=== PATIENT | male | born 1945 | race Caucasian/White ===

== ENCOUNTER 2021-03-06 10:21 | Inpatient (IN) | payer MEDICARE, OTHER ==
[~2021-03-06] VITALS: Ht 172.7 cm; Wt 79.1 kg
[2021-03-06 10:57] LABS: BASOPHIL 0.4 % (0-2); EOSINOPHIL 0.2 % (0-7); HCT 42.4 % (42.0-52.0); LYMPHOCYTE 13.7 % (15-48); MCH 29.8 pg (25.0-31.0); MCV 90.2 fL (78.0-100.0); MONOCYTE 11.7 % (0-12); MPV 10.6 fL (6.0-9.5); NEUTROPHIL 73.2 % (41-80); NRBC 0; PLT 336 K/uL (150-400); RDW 13.7 % (11.5-14.0); WBC 8.2 K/uL (4.0-10.5)
[2021-03-06 11:21] LABS: PRO-BNP 588 pg/mL (<450)
[2021-03-06 11:25] LABS: ALBUMIN 2.4 g/dL (3.4-5.0); BILIRUBIN - TOTAL 0.7 mg/dL (0.2-1.0); BUN/CREAT RATIO (CALC) 41.5 RATIO; CREATININE 1.47 mg/dL (0.67-1.17); GLOBULIN (CALCULATION) 5.1 g/dL; LACTIC ACID 1.7 mmol/L (0.4-1.9); POTASSIUM 3.8 mmol/L (3.5-5.1); TOTAL PROTEIN 7.5 g/dL (6.4-8.2)
[2021-03-06 11:46] LABS: CORONAVIRUS 2019 SARS-COV-2 NEGATIVE (NEGATIVE); INFLUENZA A NAA NEGATIVE (NEGATIVE)
[2021-03-06] MEDS ORDERED: SODIUM BICARBO650 M1 PO (14:51)
[2021-03-06] MEDS ORDERED: PROSCAR5 MG PO (14:51)
[2021-03-06] MEDS ORDERED: FAMOTIDINE20 MG PO (14:52)
[2021-03-06] MEDS ORDERED: ZOCOR20 MG PO (17:22)
[2021-03-06] MEDS ORDERED: FLOMAX0.4 MG PO (17:22)
[2021-03-06] MEDS ORDERED: NOVOLOG VI100 UNIT/1 SC (17:23)
[2021-03-06] MEDS ORDERED: COZAAR50 MG PO (17:23)
[2021-03-06] MEDS ORDERED: ASPIRIN81 MG PO (17:24)
[2021-03-06] MEDS ORDERED: LEVEMIR VI100 UNITS/ SC (17:24)
[2021-03-06] MEDS ORDERED: BROVANA15 MCG/2 M INH (17:25)
[2021-03-06] MEDS ORDERED: PULMICORT0.25 MG/2 INH (17:25)
[2021-03-06] MEDS ORDERED: PLAVIX75 MG PO (17:26)
[2021-03-06] MEDS ORDERED: CARDIZEM CD120 MG PO (17:26)
[2021-03-06] MEDS ORDERED: BYDUREON B2 MG/0.85 IJ (17:26)
[2021-03-06] MEDS ORDERED: FENOFIBRATE134 MG PO (17:27)
[2021-03-07 04:18] LABS: BASOPHIL 0.1 % (0-2); EOSINOPHIL 0 % (0-7); HCT 40.4 % (42.0-52.0); HGB 12.6 g/dl (13.2-18.0); MCH 28.8 pg (25.0-31.0); MCHC 31.2 g/dL (32.0-36.0); MCV 92.4 fL (78.0-100.0); MONOCYTE 6.1 % (0-12); MPV 11.3 fL (6.0-9.5); NEUTROPHIL 87.9 % (41-80); NRBC 0; PLT 333 K/uL (150-400); RBC 4.37 M/uL (4.70-6.00); RDW 14.2 % (11.5-14.0); WBC 6.8 K/uL (4.0-10.5)
[2021-03-07 05:08] LABS: BUN/CREAT RATIO (CALC) 29.1 RATIO; CREATININE 2.2 mg/dL (0.67-1.17); POTASSIUM 3.8 mmol/L (3.5-5.1)
[2021-03-08 06:01] LABS: BASOPHIL 0.3 % (0-2); EOSINOPHIL 0 % (0-7); HCT 35.9 % (42.0-52.0); HGB 11.8 g/dl (13.2-18.0); LYMPHOCYTE 7.3 % (15-48); MCH 30.1 pg (25.0-31.0); MCHC 32.9 g/dL (32.0-36.0); MCV 91.6 fL (78.0-100.0); MONOCYTE 7.1 % (0-12); MPV 11.1 fL (6.0-9.5); NEUTROPHIL 83.8 % (41-80); NRBC 0; PLT 379 K/uL (150-400); RBC 3.92 M/uL (4.70-6.00); RDW 14.3 % (11.5-14.0); WBC 11.1 K/uL (4.0-10.5)
[2021-03-08 06:34] LABS: BUN/CREAT RATIO (CALC) 28.2 RATIO; CREATININE 1.74 mg/dL (0.67-1.17); POTASSIUM 4.3 mmol/L (3.5-5.1)
--- NOTE | 2021-03-08 13:31 | NUR ---
03/08/21 Mr. Chan lives at home with his spouse, He was independent in the home and community prior to admission. He has home 02 at 2 L and portable tanks. He mainly uses the 02 at night. PCP is Gerson Mnedoza. - They are able to meet their financial needs. - Mr. Chan is agreeable to HH if recommended by Therapy.
[2021-03-09 06:45] LABS: BASOPHIL 0.3 % (0-2); EOSINOPHIL 0.1 % (0-7); HCT 38.8 % (42.0-52.0); HGB 12.5 g/dl (13.2-18.0); LYMPHOCYTE 10.2 % (15-48); MCH 29.3 pg (25.0-31.0); MCHC 32.2 g/dL (32.0-36.0); MCV 91.1 fL (78.0-100.0); MONOCYTE 8.1 % (0-12); MPV 10.6 fL (6.0-9.5); NEUTROPHIL 78.6 % (41-80); NRBC 0; PLT 425 K/uL (150-400); RBC 4.26 M/uL (4.70-6.00); RDW 14.4 % (11.5-14.0); WBC 10.2 K/uL (4.0-10.5)
[2021-03-09 07:25] LABS: BUN/CREAT RATIO (CALC) 27.3 RATIO; CREATININE 1.43 mg/dL (0.67-1.17); POTASSIUM 3.9 mmol/L (3.5-5.1)
[2021-03-09] MEDS ORDERED: DUONEB 2.5-0.5M1 AMP INH (11:26)
[2021-03-09] MEDS ORDERED: AZITHROMYCIN250 MG PO (11:30)
[2021-03-09] MEDS ORDERED: PREDNISONE 20MG20 MG PO (11:30)
--- NOTE | 2021-03-09 14:10 | NUR ---
DISCHARGED BY WHEELCHAIR ACCOMPANIED BY DAUGHTER. DISCHARGE INSTRUCTIONS GIVEN, IV DCD. VERBALIZED UNDERSTANDING OF DISCHARGE INSTRUCTIONS.
== END 2021-03-09 13:45 | disposition home or self-care (01) | DRG 193 ==
LOC: FER 10:21 → FICU 12:56 → FTCU 12:56 → FICU 13:35
PROVIDERS: Emergency Medicine; ADMIT Internal Medicine
PROC: 5A09457 Assistance with Respiratory Ventilation, 24-96 Consecutive Hours, Continuous Positive Airway Pressure (ICD-10-PCS; principal; 2021-03-06)
DX: J18.9 Pneumonia, unspecified organism (principal); J96.21 Acute and chronic respiratory failure with hypoxia; J44.0 Chronic obstructive pulmonary disease with (acute) lower respiratory infection; J44.1 Chronic obstructive pulmonary disease with (acute) exacerbation; N17.9 Acute kidney failure, unspecified; Z20.822 Contact with and (suspected) exposure to COVID-19; N18.30 Chronic kidney disease, stage 3 unspecified; E11.22 Type 2 diabetes mellitus with diabetic chronic kidney disease; N40.0 Benign prostatic hyperplasia without lower urinary tract symptoms; Z99.81 Dependence on supplemental oxygen; Z87.442 Personal history of urinary calculi; Z86.73 Personal history of transient ischemic attack (TIA), and cerebral infarction without residual deficits; Z90.49 Acquired absence of other specified parts of digestive tract; Z98.890 Other specified postprocedural states; Z87.891 Personal history of nicotine dependence; Z79.4 Long term (current) use of insulin; Z79.02 Long term (current) use of antithrombotics/antiplatelets; Z79.82 Long term (current) use of aspirin; Z79.899 Other long term (current) drug therapy
CPT/HCPCS: 36415; 36600; 71045; 80048; 80053; 82803; 82962; 83036; 83605; 83880; 84145; 84484; 85025; 87040; 93005; 94640; 94660; 94664; 97162; 97165; 97530-GP; 97535; J0456; J0696; J1650; J1815; J2930; J7030; J7050; J7512; U0002

== ENCOUNTER 2021-03-16 09:32 | Inpatient (IN) | payer MEDICARE, OTHER ==
[~2021-03-16] VITALS: Ht 180.3 cm; Wt 82.6 kg
[~2021-03-16 09:32] MED LIST: ASPIRIN81 MG PO; AZITHROMYCIN250 MG PO; BROVANA15 MCG/2 M INH; BYDUREON B2 MG/0.85 IJ; CARDIZEM CD120 MG PO; COZAAR50 MG PO; DUONEB 2.5-0.5M1 AMP INH; FAMOTIDINE20 MG PO; FENOFIBRATE134 MG PO; FLOMAX0.4 MG PO; LEVEMIR VI100 UNITS/ SC; NOVOLOG VI100 UNIT/1 SC; PLAVIX75 MG PO; PREDNISONE 20MG20 MG PO; PROSCAR5 MG PO; PULMICORT0.25 MG/2 INH; SODIUM BICARBO650 M1 PO; ZOCOR20 MG PO
[2021-03-16 10:40] LABS: BASOPHIL 0.2 % (0-2); EOSINOPHIL 0.2 % (0-7); HGB 11.1 g/dl (13.2-18.0); LYMPHOCYTE 9.5 % (15-48); MCH 29.4 pg (25.0-31.0); MCHC 31.7 g/dL (32.0-36.0); MCV 92.8 fL (78.0-100.0); MONOCYTE 7.4 % (0-12); MPV 10.5 fL (6.0-9.5); NRBC 0; PLT 436 K/uL (150-400); RBC 3.77 M/uL (4.70-6.00); RDW 14.4 % (11.5-14.0)
[2021-03-16 10:44] LABS: WBC 26.7 K/uL (4.0-10.5)
[2021-03-16 10:59] LABS: ALBUMIN 2.5 g/dL (3.4-5.0); BILIRUBIN - TOTAL 0.7 mg/dL (0.2-1.0); BUN/CREAT RATIO (CALC) 23.8 RATIO; CREATININE 2.27 mg/dL (0.67-1.17); GLOBULIN (CALCULATION) 3.2 g/dL; POTASSIUM 4.2 mmol/L (3.5-5.1); TOTAL PROTEIN 5.7 g/dL (6.4-8.2)
[2021-03-16 14:25] LABS: LACTIC ACID 1.8 mmol/L (0.4-1.9)
[2021-03-16] MEDS ORDERED: BREZTRI AEROS10.7 GM INH (22:24)
[2021-03-17 00:53] LABS: BILIRUBIN NEGATIVE (NEGATIVE); BLOOD NEGATIVE Ery/uL (NEGATIVE); CLARITY CLEAR (CLEAR); COLOR YELLOW (YELLOW); GLUCOSE (U) 2+ mg/dL (NORMAL); LEUKOCYTES NEGATIVE Leu/uL (NEGATIVE); NITRITE NEGATIVE (NEGATIVE); PROTEIN 2+ mg/dL (NEGATIVE); SPECIFIC GRAVITY >=1.030 (1.001-1.030); UROBILINOGEN 0.2 mg/dL (0.2-1.0)
[2021-03-17 01:05] LABS: BACTERIA TRACE; URINARY RBC RARE; URINARY WBC RARE
[2021-03-17 06:04] LABS: BASOPHIL 0.1 % (0-2); EOSINOPHIL 0.6 % (0-7); HCT 27.3 % (42.0-52.0); HGB 8.7 g/dl (13.2-18.0); MCH 29.4 pg (25.0-31.0); MCHC 31.9 g/dL (32.0-36.0); MCV 92.2 fL (78.0-100.0); MONOCYTE 8.9 % (0-12); MPV 10.8 fL (6.0-9.5); NEUTROPHIL 76.8 % (41-80); NRBC 0; PLT 326 K/uL (150-400); RBC 2.96 M/uL (4.70-6.00); RDW 14.6 % (11.5-14.0); WBC 14.3 K/uL (4.0-10.5)
[2021-03-17 06:20] LABS: BUN/CREAT RATIO (CALC) 28.6 RATIO; CREATININE 1.92 mg/dL (0.67-1.17); POTASSIUM 4.4 mmol/L (3.5-5.1)
--- NOTE | 2021-03-17 14:16 | NUR ---
03/17/21 Mr. Chan lives at home with his spouse. He uses 02 at 2 L mostly at night. He also has portable tanks. Otherwise, he is independent. No needs are anticipated for discharge planning.
[2021-03-18 06:15] LABS: BASOPHIL 0.2 % (0-2); EOSINOPHIL 0.7 % (0-7); HCT 27.2 % (42.0-52.0); HGB 8.6 g/dl (13.2-18.0); LYMPHOCYTE 9.7 % (15-48); MCH 30.1 pg (25.0-31.0); MCHC 31.6 g/dL (32.0-36.0); MCV 95.1 fL (78.0-100.0); MPV 10.7 fL (6.0-9.5); NEUTROPHIL 78.4 % (41-80); NRBC 0; PLT 302 K/uL (150-400); RBC 2.86 M/uL (4.70-6.00); RDW 14.9 % (11.5-14.0); WBC 12.8 K/uL (4.0-10.5)
[2021-03-18 06:59] LABS: BUN/CREAT RATIO (CALC) 24.1 RATIO; CREATININE 1.7 mg/dL (0.67-1.17); POTASSIUM 4.6 mmol/L (3.5-5.1)
[2021-03-18 09:26] LABS: IRON % SATURATION 10.1 %SAT (20-50)
[2021-03-18 09:40] LABS: FOLIC ACID (SERUM) 5.2 ng/mL (8.6-58.9)
[2021-03-19 05:58] LABS: BASOPHIL 0.2 % (0-2); HCT 26.6 % (42.0-52.0); HGB 8.2 g/dl (13.2-18.0); LYMPHOCYTE 12.6 % (15-48); MCH 29.1 pg (25.0-31.0); MCHC 30.8 g/dL (32.0-36.0); MCV 94.3 fL (78.0-100.0); MONOCYTE 9.5 % (0-12); MPV 10.8 fL (6.0-9.5); NEUTROPHIL 75.5 % (41-80); NRBC 0; PLT 302 K/uL (150-400); RBC 2.82 M/uL (4.70-6.00); RDW 14.8 % (11.5-14.0); WBC 11.8 K/uL (4.0-10.5)
[2021-03-19 06:17] LABS: BUN/CREAT RATIO (CALC) 18.3 RATIO; CREATININE 1.75 mg/dL (0.67-1.17); POTASSIUM 4.7 mmol/L (3.5-5.1)
[2021-03-19] MEDS ORDERED: FOLIC ACID1 MG PO (09:46)
== END 2021-03-19 14:39 | disposition home or self-care (01) | DRG 68 ==
LOC: FER 09:32 → FTCU 17:34 → FMS 03-18 12:12
PROVIDERS: Emergency Medicine; Nurse Practitioner Family; ADMIT Internal Medicine
DX: I65.22 Occlusion and stenosis of left carotid artery (principal); N17.9 Acute kidney failure, unspecified; D62 Acute posthemorrhagic anemia; S30.1XXA Contusion of abdominal wall, initial encounter; Z20.822 Contact with and (suspected) exposure to COVID-19; N40.0 Benign prostatic hyperplasia without lower urinary tract symptoms; E78.5 Hyperlipidemia, unspecified; E11.22 Type 2 diabetes mellitus with diabetic chronic kidney disease; N18.30 Chronic kidney disease, stage 3 unspecified; K21.9 Gastro-esophageal reflux disease without esophagitis; J44.9 Chronic obstructive pulmonary disease, unspecified; I12.9 Hypertensive chronic kidney disease with stage 1 through stage 4 chronic kidney disease, or unspecified chronic kidney disease; Z79.82 Long term (current) use of aspirin; Z79.02 Long term (current) use of antithrombotics/antiplatelets; Z79.4 Long term (current) use of insulin; Z79.899 Other long term (current) drug therapy; Z86.73 Personal history of transient ischemic attack (TIA), and cerebral infarction without residual deficits; Z90.49 Acquired absence of other specified parts of digestive tract; Z87.442 Personal history of urinary calculi; Z98.890 Other specified postprocedural states; Z87.891 Personal history of nicotine dependence; Z82.49 Family history of ischemic heart disease and other diseases of the circulatory system; W19.XXXA Unspecified fall, initial encounter
CPT/HCPCS: 36415; 70450; 74022; 80048; 80053; 81001; 82550; 82607; 82728; 82746; 82962; 83036; 83540; 83550; 83605; 84145; 84484; 85025; 93005; 93880; J1815; J2916; J7030; U0002